=== PATIENT | male | born 1975 | race Caucasian/White ===

== ENCOUNTER 2023-11-25 15:21 | Emergency (ER) | payer OTHER, SELFPAY ==
--- NOTE | ~2023-11-25 | XR_ITS ---
EXAMINATION: XR chest 2V CLINICAL INFORMATION: Reason for Exam shortness of breath COMPARISON: No prior chest x-ray available in our system for comparison at the time of this dictation. TECHNIQUE: XR chest 2V, 2 Views Lungs and Nancy: Mild opacity probably infiltrate/atelectasis at left lung base. Pleura: Normal. Costophrenic angles are sharp. No pneumothorax. Heart: The heart is normal in size. Mediastinum: The mediastinum is within normal limits.. Bones: Skeletal structures included are normal for patient's age. XR/XR chest 2V IMPRESSION: 1. Mild opacity probably infiltrate/atelectasis at left lung base. Clinical correlation and follow-up recommended to ensure complete clearance and exclude underlying pathology. 2. No pleural effusion.
--- NOTE | 2023-11-25 15:24 | ECG_ITS ---
Test Reason : HEART ATTACK? Blood Pressure : / mmHG Vent. Rate : 125 BPM Atrial Rate : 125 BPM P-R Int : 144 ms QRS Dur : 086 ms QT Int : 314 ms P-R-T Axes : 050 017 018 degrees QTc Int : 453 ms Sinus tachycardia Otherwise normal ECG No previous ECGs available Referred By: Generic ED Physician Electronically Signed By:AYSE HADLEY MD
[2023-11-25 15:58] VITALS: BP 147/105; PULSE 124; RESP 18; TEMP 36.5; O2SAT 95; BMI 32.5
--- NOTE | 2023-11-25 15:59 | ED_ITS ---
HPI - General Adult General Chief complaint: General Medical Stated complaint: lung congestion, heart attack per pcp Time Seen by Provider: 11/25/23 21:22 Source: patient and family Mode of arrival: ambulatory Limitations: no limitations History of Present Illness ED Provider: GUILLAUME BARNEY narrative: 48 yo male with PMH of HTN that his new not on medications plan was to lose weight this summer and revisit he became ill on Tuesday and started to take sudafed and dayquil/nyquil that has made him have tachycardia HTN noted by his PCP who sent him in today. He has had chillls, fevers, runny nose and cough. No travel, hotel room use. He did go to a meeting with people on Tuesday. He overall does not feel well. MD complaint: URI symptoms Onset (ago): day(s) (Tuesday ) Location: chest Radiation: non-radiation Severity: moderate Relieving factors: none Exacerbating factors: other (coughing) Associated symptoms: cough, fever/chills, headaches, loss of appetite and malaise Treatments prior to arrival: cold therapy Related Data Previous Rx's ?Medication ?Instructions ?Recorded azithromycin 250 mg tablet 250 mg PO DAILY 4 days #4 tabs 11/26/23 cefuroxime axetil 500 mg tablet 500 mg PO BID 7 days #14 tabs 11/26/23 Allergies Allergy/AdvReac Type Severity Reaction Status Date / Time No Known Allergies Allergy Verified 11/25/23 16:01 [No Known Allergies*] Review of Systems 2 Review of Systems: Constitutional : pos Fever, pos Chills, pos Fatigue ENT/Mouth : No sore throat, No Rhinorrhea Eyes: No Eye Pain, No Swelling, No Redness Cardiovascular : No Chest Pain, No SOB, No Dyspnea on Exertion Respiratory : pos Cough, pos Sputum Gastrointestinal : No Nausea, No Vomiting, No Diarrhea, No abdominal Pain Genitourinary : No Dysuria, No Urinary Frequency, No Hematuria, Musculoskeletal : No joint pain, No Myalgias, No Joint Swelling Skin : No Skin Lesions, No rash Neuro : No Weakness, No Numbness, No Dizziness, positive Headache Psych : No Anxiety/Panic, No Depression All other systems reviewed and are negative [facility] Past Medical History Attestation statement: The following information was validated with the patient. Source: old records reviewed Medical History HTN (hypertension) Social History Social History (Updated 11/25/23 @ 22:27 by Julia Lorenzo DO) Patient Tobacco Use Status: Never used Tobacco Smoked in Last 30 Days: No Advance Directives: No Advance Directives Information Provided: No Physical Exam ED Vital Signs: Vital Signs - 24 hr 11/25/23 15:58 11/25/23 20:00 11/25/23 21:13 Temperature 97.7 F 98.5 F 100.6 F H Pulse Rate 124 H 120 H 130 H Respiratory Rate 18 24 H Blood Pressure 147/105 H 161/114 H 143/108 H Pulse Oximetry 95 96 96 Oxygen Delivery Method Room Air Room Air Room Air 11/25/23 22:00 11/26/23 00:17 Temperature 100 F Pulse Rate 120 H 93 Respiratory Rate 19 22 H Blood Pressure 142/105 H 130/92 H Pulse Oximetry 93 92 Oxygen Delivery Method Room Air Room Air BMI result Body Mass Index 32.5 Appearance: Alert. Oriented X3. No acute distress. Eyes: Pupils equal, round and reactive to light. ENT: Pharynx normal. Neck: Normal inspection. Neck supple. CVS: tachycardic heart rate and rhythm. Pulses normal. Respiratory: No respiratory distress. Breath sounds diminished L lower base Abdomen: Soft and nontender. Skin: Skin warm and dry. Normal skin color. Normal skin turgor. Extremities: No lower extremity edema. No calf ttp Neuro: Oriented X 3. No motor deficit. No sensory deficit. Course Course Course Narrative: This is an RME performed by Marie Brambila CNP: Additional HPI, ROS, PE not included below will be deferred to primary provider. Patient is a 48-year-old male with past medical history of HTN, not currently on antihypertensives, recently diagnosed at physical, planning dietary exercise management and close follow-up. He states he has been experiencing Reports chest congestion, thought this was secondary to a head cold, symptom onset 2 nights ago. Has associated shortness of breath. Denies chest pain. Presented to [facility], presented there sweating profusely, he does admit to taking multiple medications prior including Sudafed and OTC cold medications. Advised to come to ED for further evaluation to rule out OK, he arrives hypertensive tachycardic. Plan: Labs, EKG, CXR, viral panel Medications Administered Discontinued Medications Generic Name Dose Route Start Last Admin Trade Name Gavin PRN Reason Stop Dose Admin Acetaminophen 650 mg 11/25/23 21:36 11/25/23 22:26 Acetaminophen 325 Mg Tablet PO 11/25/23 21:37 650 mg ONCE ONE Administration Sodium Chloride 1,000 mls @ 999 mls/hr 11/25/23 21:23 11/25/23 22:21 Ns IV 11/25/23 22:23 999 mls/hr .Q1H1M ONE Administration Ceftriaxone Sodium 1 gm/ 50 mls @ 100 mls/hr 11/25/23 21:23 11/25/23 23:12 Sodium Chloride IV 11/25/23 21:52 Infused ONCE ONE Infusion Azithromycin 500 mg/ Sodium 250 mls @ 125 mls/hr 11/25/23 21:36 11/25/23 22:56 Chloride IV 11/25/23 23:35 125 mls/hr ONCE ONE Administration Sodium Chloride 1,000 mls @ 999 mls/hr 11/25/23 21:36 11/25/23 23:30 Ns IV 11/25/23 22:36 999 mls/hr .Q1H1M ONE Administration Ibuprofen 600 mg 11/25/23 21:12 11/25/23 21:16 Ibuprofen 600 Mg Tablet PO 11/25/23 21:13 600 mg ONCE ONE Administration Medical Decision Making Medical Decision Making [facility] Narrative: 48 yo male with no sig PMH here with c/o URI symptoms then seen by PCP exacerbated HTN and tachycardia likely in setting of OTC cold mediactions - will need labs, cultures, lactic acid, IVF x 2L, tylenol and motrin - empiric CAP coverage and will monitor VS for improvement. No risk factors for VTE or travel exposures. Differential Diagnosis Differential Diagnoses: The differential diagnosis associated with the presentation includes viral syndrome, pneumonia Admission/Observation Consideration of admission/observation: Escalation of care including admission/observation considered pending VS recheck VS improved no hypoxia feels much better no resp distress HR and HTN improved feels stable to go home can be DC at this time agrees Lab Data MDM Lab Attestation statement: I reviewed the patient's lab results. 11/25/23 16:38 11/25/23 16:38 Labs: Lab Results 11/25/23 11/25/23 Range/Units 16:38 21:45 WBC 10.5 (4.8-10.8) X10*3/uL RBC 5.32 (4.60-5.80) X10*6/uL Hgb 16.9 (14.0-18.0) g/dl Hct 48.0 (42.0-52.0) % MCV 90.2 (80.0-98.0) fL MCH 31.8 (27.0-33.0) pg MCHC 35.2 (31.0-36.0) g/dl RDW 13.2 (11.0-16.0) % Plt Count 223 (160-400) X10*3/uL MPV 12.4 (9.4-12.4) fL Immature Gran % (Auto) Cancelled Neut % (Auto) Cancelled Lymph % (Auto) Cancelled [place] % (Auto) Cancelled Eos % (Auto) Cancelled Baso % (Auto) Cancelled Lymph # (Auto) Cancelled [place] # (Auto) Cancelled Eos # (Auto) Cancelled Baso # (Auto) Cancelled Abs Immat Gran (auto) Cancelled Absolute Neuts (auto) Cancelled Absolute Nucleated RBC 0.000 (0.0-0.012) X10*3/uL Nucleated RBC % (auto) 0.0 (0.0-0.2) /100WBC Neutrophils % (Manual) 70 (45-73) % Band Neutrophils % 6 H (3-5) % Lymphocytes % (Manual) 11 L (20-40) % Monocytes % (Manual) 12 H (2-11) % Eosinophils % (Manual) 1 (0-4) % Abs Neuts (Manual) 8.0 (2.0-8.3) X10*3/uL Lymphocytes # (Manual) 1.2 (1.2-4.9) X10*3/uL Monocytes # (Manual) 1.3 H (0.1-1.2) X10*3/uL Eosinophils # (Manual) 0.1 (0.0-0.4) X10*3/uL Platelet Estimate NORMAL (NORMAL) Plt Morphology Comment NORMAL RBC Morphology NORMAL Smear Tech's Comments MANUAL DIFF PT 12.7 (11.1-13.3) SEC INR 1.0 (0.9-1.1) Sodium 142 (135-145) mmol/L Potassium 3.5 (3.3-5.1) mmol/L Chloride 106 (96-108) mmol/L Carbon Dioxide 22 (22-29) mmol/L Anion Gap 18 (12-20) BUN 13 (9-16) mg/dL Creatinine 0.76 (0.5-1.4) mg/dL Estim Creat Clear Calc 141.2 Estimated GFR > 60 Random Glucose 98 (60-115) mg/dL Lactic Acid 1.1 (0.5-2.0) mmol/L Calcium 9.6 (8.4-10.2) mg/dL Magnesium 2.0 (1.6-2.6) mg/dL Total Bilirubin 1.4 H (0.0-1.0) mg/dL AST 71 H (5-37) U/L ALT 117 H (0-40) U/L Alkaline Phosphatase 109 (39-117) U/L Troponin I High Sens < 2.7 (<3.5-35.0) ng/L B-Natriuretic Peptide 15 (<100) pg/mL Total Protein 8.8 H (6.5-8.0) g/dL Albumin 4.8 (3.5-5.0) g/dL Influenza Type A (PCR) NEGATIVE (Negative) Influenza Type B (PCR) NEGATIVE (Negative) RSV RNA Qual (PCR) NEGATIVE (Negative) SARS-CoV-2 RNA (RT-PCR) NEGATIVE (Negative) Independent Interpretation I performed an independent interpretation of an: EKG and Plain X-Ray (LL pneumonia) Interpretation: Rate: 125 Rhythm: sinus tachycardia [place]: normal Normal P waves. Normal ESTRELLITA. Normal QRS complex. ST T wave : no FIORELLA inverted t waves III and V1 qTC: normal prior studies: no prior The study has been interpreted contemporaneously by me. . Radiology Impression Discussion of test interpretation with radiology: I have reviewed the radiologist's reading. Independent Historian Clinical information obtained from an independent historian. History obtained from or confirmed by: Spouse External Record Review External record reviewed: Outpatient record Prescription Management I considered prescription management with: Antibiotic Discharge Plan Discharge Clinical Impression: Pneumonia Qualifiers: Pneumonia type: due to unspecified organism Laterality: left Lung location: l ower lobe of lung Qualified Code(s): J18.9 - Pneumonia, unspecified organism Fever Qualifiers: Fever type: unspecified Qualified Code(s): R50.9 - Fever, unspecified Patient Disposition: Home, Self-Care Instructions: Pneumonia (ED) Additional Instructions: return for worsening symptoms of difficulty breathing, confusion, inability to eat or drink, you are so short of breath you cannot walk to your own bathroom or any other concerns. complete the antibiotics follow up with your doctor next week no over the counter cough or cold medications Prescriptions: New azithromycin 250 mg tablet 250 mg PO DAILY 4 Days Qty: 4 0RF Rx Instructions: start on day 2 of therapy cefuroxime axetil 500 mg tablet 500 mg PO BID 7 Days Qty: 14 0RF Stand Alone Forms: Work/School Release Print Language: Serbian
[2023-11-25 17:12] LABS: Hemoglobin 16.9 g/dl (14.0-18.0); Mean Corpuscular HGB Conc 35.2 g/dl (31.0-36.0); Mean Corpuscular Hemoglobin 31.8 pg (27.0-33.0); Mean Corpuscular Volume 90.2 fL (80.0-98.0); Mean Platelet Volume 12.4 fL (9.4-12.4); Platelet Count 223 X10*3/uL (160-400); Red Blood Count 5.32 X10*6/uL (4.60-5.80); Red Cell Distribution Width 13.2 % (11.0-16.0); White Blood Count 10.5 X10*3/uL (4.8-10.8)
[2023-11-25 17:26] LABS: Alanine Aminotransferase 117 U/L (0-40); Albumin Level 4.8 g/dL (3.5-5.0); Alkaline Phosphatase 109 U/L (39-117); Anion Gap 18 (12-20); Aspartate Amino Transferase 71 U/L (5-37); Bilirubin Total 1.4 mg/dL (0.0-1.0); Blood Urea Nitrogen 13 mg/dL (9-16); Calcium 9.6 mg/dL (8.4-10.2); Carbon Dioxide 22 mmol/L (22-29); Chloride 106 mmol/L (96-108); Creatinine Clr Calc Pharmacy 141.2; Estimated Glomerular Filt Rate > 60; Glucose Random 98 mg/dL (60-115); Potassium 3.5 mmol/L (3.3-5.1); Sodium 142 mmol/L (135-145); Total Protein 8.8 g/dL (6.5-8.0)
[2023-11-25 17:29] LABS: Prothrombin Time 12.7 SEC (11.1-13.3)
[2023-11-25 17:31] LABS: B Type Natriuretic Peptide 15 pg/mL (<100)
[2023-11-25 17:32] LABS: SLIDE REVIEW MANUAL DIFF
[2023-11-25 17:35] LABS: Band Neutrophils Percent 6 % (3-5); Eosinophils Absolute Manual 0.1 X10*3/uL (0.0-0.4); Eosinophils Percent Manual 1 % (0-4); Lymphocytes Absolute Manual 1.2 X10*3/uL (1.2-4.9); Lymphocytes Percent Manual 11 % (20-40); Monocytes Absolute Manual 1.3 X10*3/uL (0.1-1.2); Monocytes Percent Manual 12 % (2-11); Neutrophils Percent Manual 70 % (45-73)
[2023-11-25 17:37] LABS: Platelet Estimate NORMAL (NORMAL); Platelet Morphology Comment NORMAL; RBC Morphology NORMAL; Troponin-I High Sensitivity < 2.7 ng/L (<3.5-35.0)
[2023-11-25 17:47] LABS: Influenza A PCR NEGATIVE (Negative); Influenza B PCR NEGATIVE (Negative); Resp Syncy Virus RNA Qual PCR NEGATIVE (Negative); SARS COV2 PCR INHOUSE NEGATIVE (Negative)
[2023-11-25 20:00] VITALS: BP 161/114; PULSE 120; TEMP 36.9; O2SAT 96
[2023-11-25 21:13] VITALS: BP 143/108; PULSE 130; RESP 24; TEMP 38.1; O2SAT 96
[2023-11-25] MEDS: Ibuprofen 600 MG TABLET PO (21:16)
[2023-11-25 22:00] VITALS: BP 142/105; PULSE 120; RESP 19; TEMP 37.7; O2SAT 93
[2023-11-25 22:04] LABS: Lactic Acid 1.1 mmol/L (0.5-2.0)
[2023-11-25] MEDS: cefTRIAXone sodium 1 GM in 0.9 % Sodium Chloride 50 ML IV (22:21)
[2023-11-25] MEDS: 0.9 % Sodium Chloride 1,000 ML 999 ML IV ×2 (22:21→23:30)
[2023-11-25] MEDS: Acetaminophen 325 MG TABLET 650 MG PO (22:26)
[2023-11-25] MEDS: Azithromycin 500 MG in 0.9 % Sodium Chloride 250 ML 125 MG IV (22:56)
--- NOTE | 2023-11-25 23:32 | PC.NURSE ---
Took over care for Jimena at 23:00 medicated per Aug.
[2023-11-26 00:17] VITALS: BP 130/92; PULSE 93; RESP 22; O2SAT 92
--- NOTE | 2023-11-26 01:02 | PC.NURSE ---
Medication completed, reviewed discharge instructions with pt, pt verbalized understanding, no sign of respiratory distress or chest pain. pt has a steady gait upon discharge.
[2023-11-26 01:03] VITALS: BP 130/92; PULSE 93; RESP 20; TEMP 37.2; O2SAT 94
== END 2023-11-26 01:06 | disposition home or self-care (01) ==
PROVIDERS: Nurse Practitioner Family; Emergency Provider Emergency Medicine
DX: J18.9 Pneumonia, unspecified organism (principal); R50.9 Fever, unspecified; R00.0 Tachycardia, unspecified; R05.9 Cough, unspecified; R11.2 Nausea with vomiting, unspecified; Z03.818 Encounter for observation for suspected exposure to other biological agents ruled out; Z79.01 Long term (current) use of anticoagulants; Z79.899 Other long term (current) drug therapy
CPT/HCPCS: 0241U; 36415; 71046; 80053; 83605; 83735; 83880; 84484; 85007; 85027; 85610; 87040; 93005; 96361; 96374; 96375; 99285; J0456; J0696

== ENCOUNTER → 2023-11-25 15:24 | Outpatient (BNV) | payer OTHER, SELFPAY | PROVIDERS: Emergency Provider Emergency Medicine; Visit Provider Internal Medicine Cardiovascular Disease | DX: R00.0 Tachycardia, unspecified (principal) | CPT/HCPCS: 93010 ==

== ENCOUNTER 2024-04-05 06:31 | Outpatient (REF) | payer OTHER, SELFPAY ==
--- NOTE | ~2024-04-05 | US_ITS ---
EXAMINATION: US ABDOMEN COMPLETE CLINICAL INFORMATION: Upper abdominal pain. COMPARISON: CT abdomen pelvis 11/08/2018 TECHNIQUE: Real-time imaging of the abdominal viscera. FINDINGS: PANCREAS: The pancreas could not be adequately evaluated secondary to overlying bowel gas. ABDOMINAL AORTA: The proximal, mid, and distal segments are normal in caliber. INFERIOR VENA CAVA: Visualized portions are normal. LIVER: The liver is enlarged measuring 21 cm in cephalocaudad dimension with increased echogenicity consistent with hepatic steatosis . No focal hepatic lesion. There is no intrahepatic biliary duct dilatation seen. GALLBLADDER: The gallbladder is physiologically distended without evidence of stones, sludge, polyps, wall thickening or pericholecystic fluid. A positive Steele sign was reported by the pack train driver with pain when palpated over the gallbladder. COMMON BILE DUCT: Normal in caliber measuring 0.3 cm in diameter. RIGHT KIDNEY: Normal. No hydronephrosis. No renal calculi or focal parenchymal lesions. The kidney measures 11.0 cm in maximum dimension. LEFT KIDNEY: Normal. No hydronephrosis. No renal calculi or focal parenchymal lesions. The kidney measures 12.2 cm in maximum dimension. SPLEEN: Normal. The spleen measures 10.4 cm in maximum dimension. FREE FLUID: None. US/US abdomen complete IMPRESSION: 1. Enlarged fatty liver. 2. Positive Steele sign with no sonographic evidence of cholelithiasis. Electronically signed by: Harris Ruvalcaba MD 04/05/2024 11:44 AM EDT
== END 2024-04-05 06:32 | disposition home or self-care (01) ==
LOC: HO.UMASIMG 06:31
PROVIDERS: Visit Provider Internal Medicine
DX: R10.10 Upper abdominal pain, unspecified (principal); R05.3 Chronic cough; R09.82 Postnasal drip; I10 Essential (primary) hypertension
CPT/HCPCS: 76700